=== PATIENT | male | born 1935 | race Caucasian/White ===

== ENCOUNTER 2017-04-24 16:15 | Observation (INO) ==
[2017-04-24] MEDS ORDERED: SODIUM CHLORIDE 0.9% INJ SCH (16:45)
[2017-04-24] MEDS ORDERED: PROTONIX IV SCH (16:45)
[2017-04-24 17:24] LABS: MANUAL DIFF NEEDED? NO
[2017-04-24 17:36] LABS: BASO% 0.8 % (0.0-0.8); EOS# 0.03 X1000 (0.0-0.7); EOS% 0.5 % (0.0-10.0); HEMOGLOBIN 11.4 g/dL (14.0-18.0); LYMPH# 1.78 X1000 (1.2-3.4); LYMPH% 28.9 % (20.5-51.1); MCH 31.8 PG (27-31); MCHC 32.6 g/dL (33-37); MCV 97.5 FL (81-99); MONO# 0.59 X1000 (0.11-0.59); MONO% 9.6 % (1.7-9.3); MPV 9.9 FL (7.4-10.4); NEUT% 60.2 % (42.2-75.2); PLT 212 X1000 (130-400); RBC 3.59 XMIL (4.7-6.1)
[2017-04-24 17:49] LABS: ALBUMIN 3.2 g/dL (3.5-5.0); CALCIUM 9.3 mg/dL (8.8-10.2); POTASSIUM 3.7 mmol/L (3.5-5.1); TOTAL BILIRUBIN 0.47 mg/dL (0.20-1.00); TOTAL PROTEIN 5.5 g/dL (6.3-8.3)
[2017-04-24 17:58] LABS: URINE SOURCE CLEAN CATCH
[2017-04-24 17:58] LABS: FREE T4 1.15 ng/dL (0.93-1.70)
[2017-04-24] MEDS ORDERED: POTASSIUM CHLORIDE 10 MEQ in NS 1,000 ML IV SCH (18:00)
[2017-04-24 18:18] LABS: BILIRUBIN URINE NEGATIVE (NEGATIVE); BLOOD URINE NEGATIVE (NEGATIVE); CLARITY CLEAR (CLEAR); COLOR YELLOW; GLUCOSE URINE NEGATIVE (NEGATIVE); LEUKOCYTES URINE NEGATIVE (NEGATIVE); NITRITE URINE NEGATIVE (NEGATIVE); PROTEIN URINE NEGATIVE (NEGATIVE)
[2017-04-24 18:31] LABS: URINE RBC <10 /HPF (<10); URINE WBC <10 /HPF (<10)
[2017-04-24 18:32] LABS: URINE EPITHELIAL CELLS <10 /HPF (<10)
[2017-04-24 18:33] LABS: URINE CAST NONE SEEN /LPF; URINE CRYSTAL CA OXALATE PRESENT /HPF
--- NOTE | 2017-04-24 18:50 | Diag Imaging Result Doc PS360 ---
EXAM: CHEST-2 VIEWS HISTORY: abdominal pain TECHNIQUE: COMPARISON: 03/09/2017 FINDINGS: The lungs are well expanded. The heart is not enlarged. The vessels are not distended. There are no infiltrates. No pleural effusions. IMPRESSION: No acute abnormality. Electronically signed by Felton Vasquez 04/24/2017 6:47 PM
--- NOTE | 2017-04-24 18:51 | Diag Imaging Result Doc PS360 ---
EXAM: KUB ABDOMEN HISTORY: abdominal pain TECHNIQUE: COMPARISON: 06/01/2016 FINDINGS: No free air beneath the diaphragm. Mild scoliosis. Prominent degenerative changes in the lumbar spine. No bowel obstruction. No organomegaly. There are pelvic phleboliths. Prior orthopedic replacement of the right hip. IMPRESSION: No acute abnormality. Electronically signed by Felton Vasquez 04/24/2017 6:48 PM
[2017-04-24] MEDS ORDERED: FLONASE NAS PRN (18:53)
[2017-04-24] MEDS ORDERED: NEURONTIN PO PRN (18:53)
--- NOTE | 2017-04-24 19:59 | HISTORY AND PHYSICAL ---
CHIEF COMPLAINT: Abdominal pain. HISTORY OF PRESENT ILLNESS: Mr. Canales is an 81-year-old white gentleman, known case of hypertension, hyperlipidemia, hypothyroidism, advanced Alzheimer's type dementia. The patient is very vague and a poor historian. The patient claims he was not doing well today. Oral intake was poor. Complaining of abdominal pain, mainly epigastric, mild nausea, but no vomiting. Complaining of chills, but no fever. The patient was feeling weak. The was concerned. They called us. I evaluated patient in the office. The patient was weak. History part was limited. I evaluated the patient and decided to admit the patient for observation. The patient and did have a dull headache, runny nose, stuffy nose, symptoms of allergic rhinitis. No diplopia or blurred vision. No neck stiffness. No typical chest pain, palpitation, orthopnea or PND. Mild cough. No expectoration or hemoptysis. Vague abdominal pain. Nausea, but no vomiting. No diarrhea, blood, or mucus in the stool. Last bowel movement was yesterday. No bleeding per rectum. Denied any dysuria or hematuria. No abdominal distention. Denied any leg swelling. The patient does have low back pain. Arthritic pain in the knee. No unusual agitation or hallucinations. No skin rash. The patient claims compliance to medication. No heat or cold intolerance. No further history available at this time. ALLERGIES: Morphine and Seroquel. HOME MEDICATION: Namenda, Aricept, aspirin, vitamin D, Coreg, Avapro, vitamin B12, Depakote, Geodon, fenofibrate, Flonase nose spray, folic acid, Neurontin, eyedrops for glaucoma, Synthroid and multivitamin. PAST MEDICAL HISTORY: Significant for hypertension, hypothyroidism, hyperlipidemia, dementia, glaucoma, gastritis, reflux disease, osteoarthritis, peripheral neuropathy, metabolic syndrome, vitamin B12 deficiency. PERSONAL HISTORY: . Lives with the . Nonsmoker. Denied alcohol or substance abuse. FAMILY HISTORY: Noncontributory. REVIEW OF SYSTEMS: As per HPI. PHYSICAL EXAMINATION: GENERAL: Elderly, white gentleman in mild distress. VITAL: Noted. SKIN: Senile turgor. No rash or petechiae. HEENT: Head atraumatic, normocephalic. [place] conjunctivae. Anicteric sclerae. Extraocular muscle movement normal. Fundus cannot be penetrated. Good oral hygiene. No tonsillopharyngeal congestion or exudate. Ears and nose benign. NECK: Supple. No JVD, thyromegaly or lymphadenopathy. CHEST: Bilateral good air entry present. No rales or rhonchi. CARDIOVASCULAR: S1 and S2 heard. No gallop or thrill. ABDOMEN: Soft, globular. Mild epigastric tenderness. No guarding or rigidity. EXTREMITIES: No cyanosis, clubbing. No acute DVT. BID ANALYST: Alert, awake, able to move all 4 limbs, but the patient does have dementia and confusion. Crepitation both the knee joints. Vague tenderness lumbosacral spine. CONSIDERATION: Patient admitted with abdominal pain, etiology not known. The pain is mild. The patient had history of kidney stone with hydronephrosis in the past. His other problems includes hypertension, Alzheimer's type dementia, hyperlipidemia. I entertained possibility of gastritis. PLAN: Plan is to admit the patient. We will check appropriate labs. IV hydration. Symptomatic treatment. Overall plan discussed at length with the patient and they are in agreement. Laboratory data: Urinalysis did reveal some calcium oxalate crystals. I am going to get noncontrast CT scan of the abdomen and pelvis. Electrolytes were fairly benign. TSH 1.76, free T4 was 1.15. CBC: Hemoglobin 11.4, hematocrit was 35. WBC count was 6.16. Platelet count was 212,000. We are going to resume his home medication, IV Protonix, IV hydration. cc: Marcellus Costa MD
[2017-04-24] MEDS ORDERED: XALATAN 0.005% OPH SOLN BOTH EYES SCH (21:00)
[2017-04-24] MEDS ORDERED: GEODON PO SCH (21:00)
[2017-04-24] MEDS ORDERED: DEPAKOTE ER PO SCH (21:00)
[2017-04-24] MEDS ORDERED: TRICOR PO SCH (21:00)
[2017-04-24] MEDS ORDERED: ARICEPT PO SCH (21:00)
--- NOTE | 2017-04-24 21:04 | Diag Imaging Result Doc PS360 ---
EXAM: ABDOMEN/PELVIS W/O CONTRAST HISTORY: abd. pain TECHNIQUE: CT abdomen and pelvis without contrast. Dose reduction protocol. COMPARISON: 05/18/2016 FINDINGS: Normal noncontrasted liver, spleen, and pancreas. Normal adrenal glands. The gallbladder is contracted. No stones. There are several nonobstructing renal stones. No hydronephrosis. Prominent atherosclerosis. No aneurysmal dilatation to the aorta. No bowel obstruction. There are scattered diverticula. No abscess. The urinary bladder is moderately distended. Prior orthopedic replacement of the right hip. Mild scoliosis with at least moderate degenerative spine changes. IMPRESSION: 1.Prominent atherosclerosis 2.Mild scoliosis with prominent degenerative changes 3.Diverticulosis Electronically signed by Felton Vasquez 04/24/2017 9:02 PM
[2017-04-25] MEDS: COREG PO SCH ×2 (01:08→08:28)
--- NOTE | 2017-04-25 05:13 | EKG Report ---
Test Performed on : 04/24/2017 4:51:39 PM Test Reason : abdominal pain Blood Pressure : / mmHG Vent. Rate : 072 BPM Atrial Rate : 072 BPM P-R Int : 198 ms QRS Dur : 102 ms QT Int : 388 ms P-R-T Axes : 029 -43 001 degrees QTc Int : 424 ms Normal sinus rhythm. Left axis deviation Abnormal ECG When compared with ECG of 17-NOV-2016 09:17, Inverted T waves have replaced nonspecific T wave abnormality in Inferior leads Confirmed by Keyur Alston MD ([id number]) on 04/29/2017 6:01:15 AM
[2017-04-25 06:56] LABS: MANUAL DIFF NEEDED? NO
[2017-04-25 07:10] LABS: BASO% 0.5 % (0.0-0.8); EOS# 0.06 X1000 (0.0-0.7); EOS% 0.9 % (0.0-10.0); HEMATOCRIT 33.3 % (42.0-52.0); HEMOGLOBIN 10.7 g/dL (14.0-18.0); IMM GRAN# 0.02 X1000 (0.0-0.04); IMM GRAN% 0.3 % (0.0-0.5); LYMPH# 1.96 X1000 (1.2-3.4); LYMPH% 30.1 % (20.5-51.1); MCH 31.4 PG (27-31); MCHC 32.1 g/dL (33-37); MCV 97.7 FL (81-99); MONO# 0.55 X1000 (0.11-0.59); MONO% 8.4 % (1.7-9.3); MPV 10.1 FL (7.4-10.4); NEUT% 59.8 % (42.2-75.2); PLT 189 X1000 (130-400); RBC 3.41 XMIL (4.7-6.1)
[2017-04-25 07:29] LABS: ALBUMIN 2.9 g/dL (3.5-5.0); CALCIUM 8.2 mg/dL (8.8-10.2); POTASSIUM 3.5 mmol/L (3.5-5.1); TOTAL BILIRUBIN 0.54 mg/dL (0.20-1.00); TOTAL PROTEIN 5.1 g/dL (6.3-8.3)
[2017-04-25 08:57] VITALS: BP 132/45
[2017-04-25] MEDS ORDERED: ROCALTROL PO SCH (09:00)
[2017-04-25] MEDS ORDERED: AVAPRO PO SCH (09:00)
[2017-04-25] MEDS ORDERED: VITAMIN D PO SCH (09:00)
[2017-04-25] MEDS ORDERED: SYNTHROID PO SCH (09:00)
[2017-04-25] MEDS ORDERED: CENTRUM SILVER PO SCH (09:00)
[2017-04-25] MEDS ORDERED: NAMENDA XR PO SCH (09:00)
[2017-04-25] MEDS ORDERED: FOLIC ACID PO SCH (09:00)
--- NOTE | 2017-04-26 09:32 | PROGRESS NOTE ---
DATE: 04/25/2017 SUBJECTIVE: Mr. Canales is doing better. He denied any abdominal pain. No nausea or vomiting. No high-grade fever or chills. The patient is admitted with abdominal pain and nausea. The patient does have dementia. I evaluated the patient in my office. The patient is vague historian. I decided to admit the patient for observation. Initially, I started patient on IV hydration. Overall, patient is doing better. His workup was fairly benign. I did appropriate lab work which was fairly satisfactory. The patient does have anemia. BUN was 24, creatinine 1.6, total protein 5.5, and albumin of 3.2. Urinalysis did reveal calcium oxylate crystal. I did CT scan of the abdomen and pelvis. Results reviewed which did not reveal any obstructing stone with hydronephrosis. It did reveal prominent atherosclerosis, mild scoliosis with degenerative changes and diverticulosis. Overall, patient received maximum benefit of hospitalization. OBJECTIVE: Vital Signs: Vital signs noted. Lungs clear. Heart S1 and S2 heard. Abdomen: Soft and nontender. Bowel sounds present. SEED TESTER: Alert, awake and able to move all 4 limbs. IMPRESSION AND PLAN: Clinically, patient is doing better. I did appropriate lab. CT scan. I am going to repeat blood work today. If clinical condition permits, I am planning to discharge patient home today. Overall plan discussed with the and patient. They are in agreement. cc: Marcellus Costa MD
[2017-05-22] MEDS ORDERED: CYANOCOBALAMIN IM SCH (09:00)
== END 2017-04-25 12:55 | disposition home or self-care (01) ==
LOC: DIRADM → 3N 16:15
PROVIDERS: ADMIT Internal Medicine; ATTEND Internal Medicine